=== PATIENT | female | born 1940 | race Asian ===

== ENCOUNTER 2023-04-26 12:38 | Outpatient (CLI) | payer OTHER, MEDICAID | END 2023-04-26 12:39 | disposition home or self-care (01) | LOC: SCSCT 12:38 | DX: S06.5XAD Traumatic subdural hemorrhage with loss of consciousness status unknown, subsequent encounter (principal); G93.89 Other specified disorders of brain; I67.89 Other cerebrovascular disease | CPT/HCPCS: 70450 ==

== ENCOUNTER 2023-08-03 15:51 | Outpatient (CLI) | payer OTHER, MEDICAID | END 2023-08-03 15:52 | disposition home or self-care (01) | LOC: SCSRAD 15:51 | PROVIDERS: ATTEND Nurse Practitioner Family | DX: M54.6 Pain in thoracic spine (principal); R07.81 Pleurodynia; I51.7 Cardiomegaly | CPT/HCPCS: 72072 ==

== ENCOUNTER 2024-03-11 12:42 | Outpatient (CLI) | payer OTHER, MEDICAID | END 2024-03-11 12:43 | disposition home or self-care (01) | LOC: SCSCT 12:42 | PROVIDERS: ATTEND Surgery | DX: S06.5XAA Traumatic subdural hemorrhage with loss of consciousness status unknown, initial encounter (principal) | CPT/HCPCS: 70450 ==